=== PATIENT | male | born 2005 | race Two or more races ===

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

== ENCOUNTER 2023-03-04 16:31 | Outpatient (REF) | payer MEDICAID, SELFPAY ==
--- NOTE | 2023-03-05 09:16 | MHC.AU.HA3 ---
Addendum entered by Alex Peters CCC-A 03/05/23 10:33: NOTE Right hearing aid has SN that matches left aid in all documentation and programming. Unsure of reason--suspect serial numbers got switched at L&D in 2020 and might be programmed backwards, have not been hooked up since. Recommend checking and resolving at next visit. Original Note: Hearing Instrument Follow-Up- Binaural Date of Visit: 03/05/23 Right Ear: Make, Model, Color, Serial Number: Ange Rebolledo 50-312 Silver Antoine Serial #[id number] Fixed Assets Accountant Repair Warranty: 08/07/2021 Fixed Assets Accountant Loss and Damage Warranty: USED 06/28/2020 [facility] Service Plan: Battery Size: 312 Dish Up Person/Slim Tube: Size 2 power Earmold/Dome/CShell/SlimTip:Silicone SlimTip SN: [id number] Warranty: 11/03/2020 Type of Wax Guard: Cerushield Dispensed By: [facility] Date of Fittin05/14/2018 Left Ear: Make, Model, Color, Serial Number: Ange Rebolledo 50-312 Silver Antoine Serial #[id number] Fixed Assets Accountant Repair Warranty: 08/07/2021 Fixed Assets Accountant Loss and Damage Warranty: USED 06/28/2020 [facility] Service Plan: Battery Size: 312 Dish Up Person/Slim Tube: Size 2 power Earmold/Dome/CShell/SlimTip: Silicone SlimTip SN: [id number] Warranty: 11/03/2020 Type of Wax Guard: Cerushield Dispensed By: [facility] Date of Fittin05/14/2018 Follow-Up Summary: Right aid dropped off, reported . Dish Up Person intermittent, replaced. Cleaned earmold and aid, listening check OK. Brought up front for pt pickup. Recommendations: Recommendations: Patient will call if problems persist. Diagnosis Code(s): Primary Diagnosis: H90.6 Mixed Hearing Loss, Bilateral Signature: Provider: Alex Peters CCC-A
== END 2023-03-04 16:32 | disposition home or self-care (01) ==
LOC: HO.HAP 16:31
PROVIDERS: Visit Provider Nurse Practitioner
DX: Z46.1 Encounter for fitting and adjustment of hearing aid (principal); H90.6 Mixed conductive and sensorineural hearing loss, bilateral
CPT/HCPCS: V5299

== ENCOUNTER 2023-03-05 14:35 | Outpatient (REF) | payer MEDICAID, SELFPAY | END 2023-03-05 14:36 | disposition home or self-care (01) | LOC: HO.HAP 14:35 | PROVIDERS: Visit Provider Nurse Practitioner | DX: Z46.1 Encounter for fitting and adjustment of hearing aid (principal); H90.3 Sensorineural hearing loss, bilateral | CPT/HCPCS: V5266 ==

== ENCOUNTER 2023-04-16 14:23 | Outpatient (REF) | payer MEDICAID, SELFPAY ==
--- NOTE | 2023-04-17 12:37 | MHC.AU.HA3 ---
Hearing Instrument Follow-Up- Binaural Date of Visit: 04/17/22 Metal Casket Assembler Used: Right Ear: Yasmani, Model, Color, Serial Number: Ange Rebolledo 50-312 Silver Antoine Serial #[id number] Press Operator Heavy Duty Repair Warranty: 08/07/2021 Press Operator Heavy Duty Loss and Damage Warranty: USED 06/28/2020 [facility] Service Plan: Battery Size: 312 Business Transformation Analyst/Slim Tube: Size 2 power Earmold/Dome/CShell/SlimTip:Silicone SlimTip SN: [id number] Warranty: 11/03/2020 Type of Wax Guard: Cerushield Dispensed By: [facility] Date of Fittin05/14/2018 Left Ear: Yasmani, Model, Color, Serial Number: Ange Rebolledo 50-312 Silver Antoine Serial #[id number] Press Operator Heavy Duty Repair Warranty: 08/07/2021 Press Operator Heavy Duty Loss and Damage Warranty: USED 06/28/2020 [facility] Service Plan: Battery Size: 312 Business Transformation Analyst/Slim Tube: Size 2 power Earmold/Dome/CShell/SlimTip: Silicone SlimTip SN: [id number] Warranty: 11/03/2020 Type of Wax Guard: Cerushield Dispensed By: [facility] Date of Fittin05/14/2018 Follow-Up Summary: Jaylon visited for an updated audiogram and routine hearing aid maintenance. Both aids and earmolds cleaned, wax guards replaced, microphones vacuumed. Listening check OK. Jaylon requested his right aid be turned up slightly--increased 1 click, patient satisfied with sound. He will be eligible for new hearing aids soon--he is not certain he's ready for a change, but he and his father will discuss and call us back if/when ready to discuss updated technology options. Recommendations: Recommendations: Hearing instrument maintenance in 6 months, or sooner if needed. Diagnosis Code(s): Primary Diagnosis: H90.3 Bilateral Sensorineural Hearing Loss Signature: Provider: Alex Peters, [facility]
== END 2023-04-16 14:24 | disposition home or self-care (01) ==
LOC: HO.SH 14:23
PROVIDERS: Visit Provider Student in an Organized Health Care Education/Training Program
DX: Z01.118 Encounter for examination of ears and hearing with other abnormal findings (principal); Z46.1 Encounter for fitting and adjustment of hearing aid; H90.3 Sensorineural hearing loss, bilateral
CPT/HCPCS: 92557; 92593

== ENCOUNTER 2023-05-07 12:05 | Outpatient (REF) | payer MEDICAID, SELFPAY ==
[2023-05-07 14:47] LABS: Alanine Aminotransferase 40 U/L (0-40); Albumin Level 4.5 g/dL (3.5-5.0); Alkaline Phosphatase 75 U/L (39-117); Anion Gap 16 (12-20); Aspartate Amino Transferase 24 U/L (5-37); Bilirubin Total 0.8 mg/dL (0.0-1.0); Blood Urea Nitrogen 13 mg/dL (9-16); Calcium 9.5 mg/dL (8.4-10.2); Carbon Dioxide 28 mmol/L (22-29); Chloride 103 mmol/L (96-108); Estimated Glomerular Filt Rate > 60; Glucose Random 95 mg/dL (60-115); Potassium 3.7 mmol/L (3.3-5.1); Sodium 143 mmol/L (135-145); Total Protein 7.9 g/dL (6.5-8.0)
== END 2023-05-07 12:06 | disposition home or self-care (01) ==
LOC: HO.HHCL 12:05
PROVIDERS: Visit Provider Student in an Organized Health Care Education/Training Program
DX: Z00.00 Encounter for general adult medical examination without abnormal findings (principal)
CPT/HCPCS: 36415; 80053

== ENCOUNTER 2023-07-08 14:07 | Outpatient (REF) | payer MEDICAID, SELFPAY | END 2023-07-08 14:08 | disposition home or self-care (01) | LOC: HO.HAP 14:07 | PROVIDERS: Visit Provider Student in an Organized Health Care Education/Training Program | DX: Z46.1 Encounter for fitting and adjustment of hearing aid (principal); H90.3 Sensorineural hearing loss, bilateral | CPT/HCPCS: V5266 ==

== ENCOUNTER 2024-02-18 08:12 | Outpatient (REF) | payer MEDICAID, SELFPAY ==
--- NOTE | 2024-02-18 13:40 | MHC.AU.HA3 ---
Hearing Instrument Follow-Up- Binaural Date of Visit: 02/18/24 Right Ear: Yasmani, Model, Color, Serial Number: Ange Rebolledo 50-312 Silver Antoine Serial #[id number] Loom Stop Checker Repair Warranty: 08/07/2021 Loom Stop Checker Loss and Damage Warranty: USED 06/28/2020 [facility] Service Plan: Battery Size: 312 Ocean Fishing Guide/Slim Tube: Size 2 power Earmold/Dome/CShell/SlimTip:Silicone SlimTip SN: [id number] Warranty: 11/03/2020 Type of Wax Guard: Cerushield Dispensed By: [facility] Date of Fittin05/14/2018 Left Ear: Yasmani, Model, Color, Serial Number: Ange Rebolledo 50-312 Silver Antoine Serial #[id number] Loom Stop Checker Repair Warranty: 08/07/2021 Loom Stop Checker Loss and Damage Warranty: USED 06/28/2020 [facility] Service Plan: Battery Size: 312 Ocean Fishing Guide/Slim Tube: Size 2 power Earmold/Dome/CShell/SlimTip: Silicone SlimTip SN: [id number] Warranty: 11/03/2020 Type of Wax Guard: Cerushield Dispensed By: [facility] Date of Fittin05/14/2018 Follow-Up Summary: Right aid dropped off not working . Found microphones clogged, wax guard misaligned. Cleaned aid, cleaned earmold, replaced wax guard. Listening check positive. Recommendations: Recommendations: Hearing instrument follow-up or maintenance as needed. Diagnosis Code(s): Primary Diagnosis: H90.3 Bilateral Sensorineural Hearing Loss Signature: Provider: Neema Núñez, [facility]
== END 2024-02-18 08:13 | disposition home or self-care (01) ==
LOC: HO.HAP 08:12
PROVIDERS: Visit Provider Nurse Practitioner
DX: Z13.89 Encounter for screening for other disorder (principal)

== ENCOUNTER 2024-02-19 11:45 | Outpatient (REF) | payer MEDICAID, SELFPAY | END 2024-02-19 11:46 | disposition home or self-care (01) | LOC: HO.HAP 11:45 | PROVIDERS: Visit Provider Nurse Practitioner | DX: Z46.1 Encounter for fitting and adjustment of hearing aid (principal); H90.3 Sensorineural hearing loss, bilateral | CPT/HCPCS: 92592; 99499; V5266 ==

== ENCOUNTER 2024-02-19 11:52 | Outpatient (REF) | payer MEDICAID, SELFPAY | END 2024-02-19 11:53 | disposition home or self-care (01) | LOC: HO.HAP 11:52 | PROVIDERS: Visit Provider Nurse Practitioner | DX: Z13.89 Encounter for screening for other disorder (principal) ==

== ENCOUNTER 2024-03-17 13:21 | Outpatient (REF) | payer MEDICAID, SELFPAY ==
--- NOTE | 2024-03-18 09:38 | MHC.AU.HA3 ---
Hearing Instrument Follow-Up- Binaural Date of Visit: 03/17/24 Right Ear: Yasmani, , Color, Serial Number: Ange Rebolledo 50-312 Silver Antoine Serial #[id number] Major Assembler Repair Warranty: 08/07/2021 Major Assembler Loss and Damage Warranty: USED 06/28/2020 Battery Size: 312 Financial Investment Manager/Slim Tube: Size 2 power Earmold/Dome/CShell/SlimTip:Silicone SlimTip SN: [id number] Warranty: 11/03/2020 Type of Wax Guard: Cerushield Dispensed By: [facility] Date of Fittin05/14/2018 Left Ear: Yasmani, , Color, Serial Number: Ange Rebolledo 50-312 Silver Antoine Serial #[id number] Major Assembler Repair Warranty: 08/07/2021 Major Assembler Loss and Damage Warranty: USED 06/28/2020 Battery Size: 312 Financial Investment Manager/Slim Tube: Size 2 power Earmold/Dome/CShell/SlimTip: Silicone SlimTip SN: [id number] Warranty: 11/03/2020 Type of Wax Guard: Cerushield Dispensed By: [facility] Date of Fittin05/14/2018 Follow-Up Summary: Right aid dropped off turns off and on, hears better when he touches the back of it . Cleaned aid and earmold. Found multiple wax guards in business representative. Found aid to cut in and out with movement of business representative. Replaced business representative. Listening check positive. Recommendations: Recommendations: Hearing instrument follow-up or maintenance as needed. Diagnosis Code(s): Primary Diagnosis: H90.3 Bilateral Sensorineural Hearing Loss Signature: Provider: Neema Núñez, [facility]
== END 2024-03-17 13:22 | disposition home or self-care (01) ==
LOC: HO.HAP 13:21
PROVIDERS: Visit Provider Nurse Practitioner
DX: Z13.89 Encounter for screening for other disorder (principal)

== ENCOUNTER 2024-03-20 16:17 | Outpatient (REF) | payer MEDICAID, SELFPAY | END 2024-03-20 16:18 | disposition home or self-care (01) | LOC: HO.HAP 16:17 | PROVIDERS: Visit Provider Nurse Practitioner | DX: Z46.1 Encounter for fitting and adjustment of hearing aid (principal); H90.3 Sensorineural hearing loss, bilateral | CPT/HCPCS: 92592; 99499; V5299 ==

== ENCOUNTER 2024-06-02 12:59 | Outpatient (REF) | payer MEDICAID, SELFPAY ==
--- OUTSIDE RECORDS SUMMARY | 2024-06-02 13:52 | XMS_ITS | Encounter Summary ---
Author Organization [employer] Address [address] [place] [address] Care Team Providers Care Pointer Machine Operator Name Role Phone Ros Goodwin MD Primary Care Pro vider Reason for Visit * Reason Onset Date Comments July05/08/2024 Encounter Details Date Type Department Care Team ([facility] st Contact Info) Description 05/08/2024 Telephone [facility] [address] [place] [address] Lottie LealGRENADA, [place] July Recall Social History Tobacco Use Types Packs/Day Years Used Date Smoking Tobacco: Never Passive Smoke Exposure: Never Smokeless Tobacco: Never Alcohol Use Standard Drinks/Week Comments Never 0 (1 standard drink = 0.6 oz pur e alcohol) Depression Answer Date Recorded Patient Health Questionnaire-9 Score 1 12/11/2022 Housing Stability Answer Date Recorded What is your housing situation today? I have lino madison 02/04/[address] you li ve. Do you have problems with any of the following? None of the above 02/04/2023 Food Insecurity Answer Date Recorded Within the past 12 months, y ou worried that your food would run out before you got money to buy more: Never True 02/04/2023 Within the past 12 months,th e food you bought just didn't last and you didn't have enough money to get more: Never True Transportation Answer Date Recorded In the past 12 months, has l ack of transportation kept you from medical appts, meetings, work or from getting things needed for daily living? No 02/04/2023 Utilities Answer Date Recorded In the past 12 months, has t he electric, gas, oil or water company threatened to shut off services in your home? No 02/04/2023 Depression Answer Date Recorded Patient Health Questionnaire-2 Score 0 12/11/2022 Sex and Gender Information Value Date Recorded Sex Assigned at Male 02/12/2022 10:25 AM EDT Legal Sex Male 10:25 AM EDT Gender Identity Male 02/12/2022 10:25 AM EDT Sexual Orientation Straight 02/12/2022 10 :25 AM EDT documented as of this encounter Miscellaneous Notes * Telephone Encounter - Lottie Leal [place] - 05/08/2024 2:38 PM EST T/C- Cellar Packer Left Voice Mail to return call to schedule an appointment. Recall letter sent. Appointment: Physical Note: PE Month: July With: Elias Please schedule appointment if Patient calls Back. documented in this encounter Plan of Treatment Not on file documented as of this encounter Visit Diagnoses Not on filedocumented in this encounter Additional Health Concerns Assessment Noted Time PHQ-9 Depression Total Score: 1 12/12/19 10:25 AM EDT documented as of this encounter Care Teams Pointer Machine Operator Relationship Specialty Start Date End Date Ros Goodwin MD [address] [place] [phone] PCP - General Internal Medicine 09/17/22 documented as of this encounter
--- OUTSIDE RECORDS SUMMARY | 2024-06-02 13:52 | XMS_ITS | Clinical Summary ---
Author Organization [employer] Address [address] [place] [address] [address] [place] [address] Care Team Providers Care Speed Runner Name Role Phone Ros Goodwin MD Primary Care Pro vider Allergies No known active allergies Medications No known medications Active Problems Problem Noted Date Diagnosed Date Rosacea 05/07/2023 Health care maintenance 12/11/2022 Overweight 12/11/2022 Right foot drop 01/14/2017 Cognitive developmental delay 01/14/2017 Speech and language disorder 11/26/2014 Facioscapulohumeral muscular dystrophy 4 Hearing loss 03/30/2013 Scoliosis deformity of spine 03/30/2013 Visual impairment 03/30/2013 Encounters Date Type Department Care Team Description 05/08/2024 Telephone [facility] [address] [place] [address] Lottie Leal [place] July Recall from Last 3 Months Immunizations Name Administration Dates Next Due DTaP, 5 pertussis antigens 09/10/2007,,2003,06/10,2003 HPV 9-Valent 12/05/2015,01/27/2015,11/26/2014 Hep A, ped/adol, 2 dose 11/26/2014,05/23/2009 Hep B, Adolescent or Pediatric 2003,2002,2003 Hep B, adult 10/08/2023,02/11/2023,01/08/2023 Hib (HbOC) 2003,2003 IPV 09/10/2007, 4,2003,03/25 Influenza injectable quadriv alent preservative free 01/08/2023,06/17/2020,04/21/2019,03/20,01/14/2017,01/27/2015 Influenza, IIV3, injectable 06/01/2004 Influenza, Split (incl. jean-paul fied surface antigen) 03/30/2013 MMR 09/10/2007,02/10/2004 Meningococcal MCV4P ACYW-135 06/17/2020,11/27/19 15 Pfizer Covid-19 Vaccine 12+ Bivalent 12/11/2022 Pneumococcal Conjugate PCV 7 2003,06/10/19 04,2003 Tdap 11/26/2014 Varicella 09/10/2007,02/10/2004 Family History Medical History Relation Name Comments DM2 Mother's Sister DM2 Paternal Grandfather Relation Name Status Comments Mother's Sister Paternal Grandfather Social History Tobacco Use Types Packs/Day Years Used Date Smoking Tobacco: Never Passive Smoke Exposure: Never Smokeless Tobacco: Never Tobacco Cessation:Counseling Given: Not Answered Alcohol Use Standard Drinks/Week Comments Never 0 [...] Orientation Straight 02/12/2022 10 :25 AM EDT Last Filed Vital Signs Vital Sign Reading Time Taken Comments Blood Pressure 134/76 10/08/2023 9:57 AM EDT Pulse 87 10/08/2023 9:57 AM EDT Temperature 37.2 ??C (98.9 ??F) 10/08/2023 9:57 AM ED T Respiratory Rate 20 10/08/2023 9:57 AM EDT Oxygen Saturation 97% 10/08/2023 9:57 AM EDT Inhaled Oxygen Concentration - - Weight 80.3 kg (177 lb) 10/08/2023 9:57 AM EDT Height 170.2 cm (5' 7 ) 05/07/2023 11:17 AM EST Body Mass Index 27.72 05/07/2023 11:17 AM EST Plan of Treatment Health Maintenance Due Date Last Done Comments Alcohol/Substance Use Screening 2015 Family Planning (PISQ) 2018 Chlamydia and Gonorrhea Screening 12/12/2023 12/11/2022 Depression Screening 12/12/2023 12/11/2022, 12/12/19 23 COVID-19 Vaccine ( season) 2023 12/11/2022, 06/05/2021, 05/15/2021 Influenza Vaccine (#1) 2023 , 06/17/2020, 04/21/2019, Additional history exists SDOH Screening 09/23/2024 09/24/2023 Tobacco Screening 10/07/2024 10/08/2023 DTaP/Tdap/Td Vaccines (7 - Td or Tdap) 11/26/2024 11/26/2014, 09/10/2007, 06/01/2004, Additional history exists Zoster Vaccines (1 of 2) 2053 RSV Patients and Patients Aged 60 years or older (1 - 1-dose 75+ series) 2078 HIB Vaccines Aged Out 2003, 2003 No lo nger eligible based on patient's age to complete this topic Pneumococcal Vaccine: Pediatrics (0 to 5 Years) and At-Risk Patients (6 to 49) Years) Aged Out 2003, 2003, 2003 No longer eligible based on patient's age to complete this topic IPV Vaccines Completed 09/10/2007, 09/13, 2003, Additional history exists Hepatitis A Vaccines Completed 11/26/2014, 05/23/19 10 HPV Vaccines Completed 12/05/2015, 01/13, 11/26/2014 Meningococcal Vaccine Completed 06/17/2020, 015 HIV Screening Completed 12/11/2022 Hepatitis C Screening Completed 12/11/2022 Hepatitis B Vaccines Completed 10/08/2023, 02/11/2023, 01/08/2023, Additional history exists RSV under 20 months Aged Out No longe r eligible based on patient's age to complete this topic Rotavirus Vaccines Aged Out No longer eligible based on patient's age to complete this topic Procedures Procedure Name Priority Date/Time Associated Diagnosis Comments CHLAMYDIA/N. GONORRHOEAE RNA, TMA, UROGENITAL Routine 12/11/2022 11:27 AM EDT Health care maintenance HEPATITIS C ANTIBODY REFLEX Routine 12/11/2022 11:23 AM EDT HIV ANTIBODY/ANTIGEN ([place] [facility]) Routine 12/11/2022 11:23 AM EDT from Last 3 Months or Most Recently Relevant to Health Maintenance Results * Chlamydia/N. Gonorrhoeae RNA, TMA, Urogenitial (12/11/2022 11:27 AM EDT) Pathologist [facility] CT PCR NOT DETECTED Not Detect. [facility] Comment:A not detected test result does not exclude the possibilityof infection because test results can be affected byimproper specimen collection, concurrent antibiotic therapy,or the number of organisms in the specimen which may bebelow the sensitivity of the test. As with many diagnostictests, results from the Xpert CT/NG assay should beinterpreted in conjunction with other laboratory andclinical data available to the clinician.Xpert CT/NG performance has not been evaluated in patientsless than 14 years of age. The assay should not be used forthe evaluationof suspected sexual abuse or for other medico-legalindications. Additional testing is recommended in anycircumstance when false positive or false negative resultscould lead to adverse medical, social or psychologicalconsequences. NG PCR NOT DETECTED Not Detect. [facility] Comment:A not detected test result does not exclude the possibilityof infection because test results can be affected byimproper specimen collection, concurrent antibiotic therapy,or the number of organisms in the specimen which may bebelow the sensitivity of the test. As with many diagnostictests, results from the Xpert CT/NG assay should beinterpreted in conjunction with other laboratory andclinical data available to the clinician.Xpert CT/NG performance has not been evaluated in patientsless than 14 years of age. The assay should not be used forthe evaluationof suspected sexual abuse or for other medico-legalindications. Additional testing is recommended in anycircumstance when false positive or false negative resultscould lead to adverse medical, social or psychologicalconsequences. Urine (Urine, Random) 12/11/2022 11:27 AM EDT 12/11/2022 1:53 PM EDT Narrative [facility] - 12/11/2022 3:50 PM EDT Urine Ros Heart MD LAB MICROBIOLOGY - GENERAL ORDERABLES Final Result [facility] [address] [place] [phone] * Hepatitis C Antibody Reflex (12/11/2022 11:23 AM EDT) Hepatitis C Antibody Nonreactive Nonreactive [facility] Comment:Antibodies to HCV no t detected; does not exclude early acuteHCV infection. 12/11/2022 11:2 3 AM EDT 12/11/2022 1:31 PM EDT us Ros Heart MD LAB BLOOD ORDERAB LES Final Result Performing Organization Address [facility]/ZIP Co de Phone Number [facility] [address] [place] [address] [phone] * HIV Ab/Ag (LANRE MCCOY) (12/11/2022 11:23 AM EDT) HIV AB/AG Nonreactive Nonreactive [facility] Comment:HIV-1 p24 Ag and/or HIV-1/HIV-2 Ab not detected.A test result that is nonreactive does not exclude thepossibility of exposure to or infection with HIV-1 and/orHIV-2. Nonreactive results in this assay for individualswith prior exposure to HIV-1 and/or HIV-2 may be due toantigen and antibody levels that are below the limit ofdetection of this assay.The Dupree Steam Shovel Engineer HIV Ag/Ab Combo assay result andsupplemental assay results should be interpreted inconjunction with the patient's clinical presentation,history and other laboratory results. If the results areinconsistent with clinical evidence, additional testing issuggested to confirm the result. 12/11/2022 11:2 3 AM EDT 12/11/2022 1:41 PM EDT us Ros Heart MD LAB BLOOD ORDERAB LES Final Result Performing Organization Address City/[facility]/ZIP Co de Phone Number [facility] [address] [place] [address] [phone] from Last 3 Months or Most Recently Relevant to Health Maintenance Insurance [facility] C3 Care Teams Speed Runner Relationship Specialty Start Date End Date Ros Goodwin MD [address] [place] [phone] PCP - General Internal Medicine 09/17/22
== END 2024-06-02 13:00 | disposition home or self-care (01) ==
LOC: HO.HAP 12:59
PROVIDERS: Visit Provider Nurse Practitioner
DX: Z46.1 Encounter for fitting and adjustment of hearing aid (principal); H90.3 Sensorineural hearing loss, bilateral
CPT/HCPCS: V5266

== ENCOUNTER 2024-08-14 13:20 | Outpatient (REF) | payer MEDICAID, SELFPAY ==
--- NOTE | 2024-08-14 14:47 | MHC.AU.HA3 ---
Hearing Instrument Follow-Up- Binaural Date of Visit: 08/14/24 Playground Supervisor Used: Right Ear: Yasmani, Model, Color, Serial Number: Ange Rebolledo 50-312 Silver Antoine Serial #[id number] Site Safety Representative Repair Warranty: 08/07/2021 Site Safety Representative Loss and Damage Warranty: USED 06/28/2020 [facility] Service Plan: Battery Size: 312 [place] Man/Slim Tube: Size 2 power Earmold/Dome/CShell/SlimTip:Silicone SlimTip SN: [id number] Warranty: 11/03/2020 Type of Wax Guard: Cerushield Dispensed By: [facility] Date of Fittin05/14/2018 Left Ear: Yasmani, Model, Color, Serial Number: Ange Rebolledo 50-312 Silver Antoine Serial #[id number] Site Safety Representative Repair Warranty: 08/07/2021 Site Safety Representative Loss and Damage Warranty: USED 06/28/2020 [facility] Service Plan: Battery Size: 312 [place] Man/Slim Tube: Size 2 power Earmold/Dome/CShell/SlimTip: Silicone SlimTip SN: [id number] Warranty: 11/03/2020 Type of Wax Guard: Cerushield Dispensed By: [facility] Date of Fittin05/14/2018 Follow-Up Summary: Jaylon reports his left laborer pullet farm broke, right is weak. Both receivers need to be replaced. Cleaned EMs, debris from microphones, and ran through dehumidifiers. Significant debris on devices. Otoscopy shows red, irritated canals with white debris. Patient reports itching at night. Recommend contacting PCP in case of infection. Sister states they will request order for new hearing test to begin process for updated hearing aids. Recommendations: Recommendations: Hearing instrument follow-up or maintenance as needed. Diagnosis Code(s): Primary Diagnosis: H90.3 Bilateral Sensorineural Hearing Loss Signature: Provider: Alex Peters, [facility]
== END 2024-08-14 13:21 | disposition home or self-care (01) ==
LOC: HO.HAP 13:20
PROVIDERS: Visit Provider Nurse Practitioner
DX: Z46.1 Encounter for fitting and adjustment of hearing aid (principal); H90.3 Sensorineural hearing loss, bilateral
CPT/HCPCS: 92593; 99499; V5266; V5299

== ENCOUNTER 2024-09-17 13:44 | Outpatient (REF) | payer MEDICAID, SELFPAY ==
--- OUTSIDE RECORDS SUMMARY | 2024-09-17 16:14 | XMS_ITS | Clinical Summary ---
Author Organization [employer] Address [address] [facility] [address] [place] [address] Care Team Providers Care Highway Design Engineer Name Role Phone Ros Goodwin MD Primary [...] Encounters Date Type Department Care Team Description 07/24/[address] [facility] [address] [place] [address] Ros Goodwin MD october06/26/2024 Population Health Risk Score [facility] (C3) Department [address] [phone] Provider, Population Health Generic from Last 3 Months Immunizations Immunization Administration Dates Next Due DTaP, 5 pertussis [...] Health Maintenance Due Date Last Done Comments Disability Screening 2003 Alcohol/Substance Use Screening 2015 Family Planning (PISQ) 2018 Meningococcal B Vaccine (1 of 2 - Standard) 2019 Chlamydia and Gonorrhea Screening 12/12/2023 12/11/2022 Depression Screening 12/12/2023 12/11/2022, 12/12/19 23 COVID-19 Vaccine ( season) 2023 12/11/2022, 06/05/2021, 05/15/2021 SDOH Screening 09/23/2024 09/24/2023 Tobacco Screening 10/07/2024 10/08/2023 DTaP/Tdap/Td Vaccines (7 - Td or Tdap) 11/26/2024 11/26/2014, 09/10/2007, 06/01/2004, Additional history exists Influenza Vaccine (Season Ended) 2024 01/08/2023, 06/17/2020, 04/21/2019, Additional history exists Zoster Vaccines (1 of [...] RNA, TMA, Urogenitial (12/11/2022 11:27 AM EDT) CT PCR NOT DETECTED Not Detect. [facility] Comment:A not detected test [...] psychologicalconsequences. NG PCR NOT DETECTED Not Detect. [facility] Comment:A not detected test [...] AM EDT 12/11/2022 1:53 PM EDT Narrative [facility] - 12/11/2022 3:50 PM EDT Urine us Ros Heart MD LAB MICROBIOLOGY - GENERAL ORDERABLES Final Result [facility] [address] [place] [phone] * Hepatitis C Antibody Reflex (12/11/2022 11:23 AM EDT) Hepatitis C Antibody Nonreactive Nonreactive [facility] Comment:Antibodies to HCV no t detected; does not exclude early acuteHCV infection. 12/11/2022 11:2 3 AM EDT 12/11/2022 1:31 PM EDT us Ros Heart MD LAB BLOOD ORDERAB LES Final Result Performing Organization Address [facility]/ZIP Co de Phone Number [facility] [address] [place] [address] [phone] * HIV Ab/Ag ([facility]) (12/11/2022 11:23 AM EDT) [facility] HIV AB/AG Nonreactive Nonreactive [facility] Comment:HIV-1 p24 Ag and/or HIV-1/HIV-2 Ab not detected.A test result that is nonreactive does not exclude thepossibility of exposure to or infection with HIV-1 and/orHIV-2. Nonreactive results in this assay for individualswith prior exposure to HIV-1 and/or HIV-2 may be due toantigen and antibody levels that are below the limit ofdetection of this assay.The Dupree Car Rider HIV Ag/Ab Combo assay result andsupplemental assay results should be interpreted inconjunction with the patient's clinical presentation,history and other laboratory results. If the results areinconsistent with clinical evidence, additional testing issuggested to confirm the result. 12/11/2022 11:2 3 AM EDT 12/11/2022 1:41 PM EDT us Ros Heart MD LAB BLOOD ORDERAB LES Final Result Performing Organization Address [facility] Co de Phone Number [facility] [address] [place] [phone] from Last 3 Months or Most Recently Relevant to Health Maintenance Insurance * Guarantor: Jaylon Edmondson Account Type Relation to Patient Date of Phone Billing Address Personal/Family Self [address] Care Teams Highway Design Engineer Relationship Specialty Start Date End Date Ros Goodwin MD [address] [place] [phone] PCP - General Internal Medicine 09/17/22
== END 2024-09-17 13:45 | disposition home or self-care (01) ==
LOC: HO.HAP 13:44
PROVIDERS: Visit Provider Nurse Practitioner
DX: Z46.1 Encounter for fitting and adjustment of hearing aid (principal); H90.3 Sensorineural hearing loss, bilateral
CPT/HCPCS: V5266

== ENCOUNTER 2024-09-28 12:24 | Outpatient (REF) | payer MEDICAID, SELFPAY ==
--- OUTSIDE RECORDS SUMMARY | 2024-09-28 13:47 | XMS_ITS | Clinical Summary ---
Author Organization [employer] Address [address] [place] [address] [place] [address] Care Team Providers Care Print Inspector Name Role Phone Ros Goodwin MD Primary [...] Type Department Care Team Description 07/24/[address] [phone] Ros Goodwin MD october recall from Last 3 Months Immunizations Immunization Administration [...] Years) and At-Risk Patients (6 to 49) Years Aged Out 2003, 2003, 2003 No longer [...] EDT) CT PCR NOT DETECTED Not Detect. [facility] Comment:A not detected test result does [...] psychologicalconsequences. NG PCR NOT DETECTED Not Detect. [facility] Comment:A not detected test result does [...] AM EDT 12/11/2022 1:53 PM EDT Narrative [facility] - 12/11/2022 3:50 PM EDT Urine us Ros Heart MD LAB MICROBIOLOGY - GENERAL ORDERABLES Final Result [facility] [address] [place] [phone] * Hepatitis C Antibody Reflex (12/11/2022 11:23 AM EDT) Hepatitis C Antibody Nonreactive Nonreactive [facility] Comment:Antibodies to HCV no t detected; does not exclude early acuteHCV infection. 12/11/2022 11:2 3 AM EDT 12/11/2022 1:31 PM EDT us Ros Heart MD LAB BLOOD ORDERAB LES Final Result Performing Organization Address [facility] Co de Phone Number [facility] [address] [place] [address] [phone] * HIV Ab/Ag ([facility] DP) (12/11/2022 11:23 AM EDT) HIV AB/AG Nonreactive Nonreactive [facility] Comment:HIV-1 p24 Ag and/or HIV-1/HIV-2 Ab not detected.A test result that is nonreactive does not exclude thepossibility of exposure to or infection with HIV-1 and/orHIV-2. Nonreactive results in this assay for individualswith prior exposure to HIV-1 and/or HIV-2 may be due toantigen and antibody levels that are below the limit ofdetection of this assay.The Dupree Strategy Manager HIV Ag/Ab Combo assay result andsupplemental assay results should be interpreted inconjunction with the patient's clinical presentation,history and other laboratory results. If the results areinconsistent with clinical evidence, additional testing issuggested to confirm the result. 12/11/2022 11:2 3 AM EDT 12/11/2022 1:41 PM EDT us Ros Heart MD LAB BLOOD ORDERAB LES Final Result Performing Organization Address [facility] Co de Phone Number [facility] [address] [place] [address] [phone] from Last 3 Months or Most Recently Relevant to Health Maintenance Insurance [facility] C3 Care Teams Print Inspector Relationship Specialty Start Date End Date Ros Goodwin MD [address] [place] [phone] PCP - General Internal Medicine 09/17/22
== END 2024-09-28 12:25 | disposition home or self-care (01) ==
LOC: HO.HAP 12:24
PROVIDERS: Visit Provider Nurse Practitioner
DX: Z46.1 Encounter for fitting and adjustment of hearing aid (principal); H90.3 Sensorineural hearing loss, bilateral
CPT/HCPCS: 92592; 99499; V5299

== ENCOUNTER 2024-10-07 10:58 | Outpatient (REF) | payer MEDICAID, SELFPAY ==
--- OUTSIDE RECORDS SUMMARY | 2024-10-07 13:00 | XMS_ITS | Clinical Summary ---
Author Organization [employer] Address [address] [place] [address], [place] [address] Care Team Providers Care Damper Maker Name Role Phone Ros Goodwin MD Primary [...] Type Department Care Team Description 07/24/[address] [phone] Ros Goodwin MD october recall from Last [...] 87 10/08/2023 9:57 AM EDT Temperature 37.2 C (98.9 F) 10/08/2023 9:57 AM EDT Respiratory Rate 20 10/08/2023 9:57 AM EDT Oxygen Saturation 97% 10/08/2023 9:57 AM EDT Inhaled Oxygen Concentration - - Weight 80.3 kg (177 lb) 10/08/2023 9:57 AM EDT Height 170.2 cm (5' 7 ) 05/07/2023 11:17 AM EST Body Mass Index 27.72 05/07/2023 11:17 AM EST Plan of Treatment Upcoming Encounters Date Type Department Care Team (Late st Contact Info) Description 12/09/2024 2:45 PM EDT Office Visit [facility] [address] [place] [address] [phone] oRs Goodwin MD [address] [place], [place] [phone] Health Maintenance Due Date Last Done Comments [...] EDT) CT PCR NOT DETECTED Not Detect. [facility] Comment:A not detected test result [...] psychologicalconsequences. NG PCR NOT DETECTED Not Detect. [facility] Comment:A not detected test result [...] AM EDT 12/11/2022 1:53 PM EDT Narrative [facility] - 12/11/2022 3:50 PM EDT Urine us Ros Heart MD LAB MICROBIOLOGY - GENERAL ORDERABLES Final Result [facility] [address] [place] [phone] * Hepatitis C Antibody Reflex (12/11/2022 11:23 AM EDT) Hepatitis C Antibody Nonreactive Nonreactive [facility] Comment:Antibodies to HCV no t detected; does not exclude early acuteHCV infection. 12/11/2022 11:2 3 AM EDT 12/11/2022 1:31 PM EDT us Ros Heart MD LAB BLOOD ORDERAB LES Final Result Performing Organization Address [facility] Co de Phone Number [facility] [address] [place] [address] [phone] * HIV Ab/Ag ([facility]) (12/11/2022 11:23 AM EDT) HIV AB/AG Nonreactive Nonreactive [facility] Comment:HIV-1 p24 Ag and/or HIV-1/HIV-2 Ab not detected.A test result that is nonreactive does not exclude thepossibility of exposure to or infection with HIV-1 and/orHIV-2. Nonreactive results in this assay for individualswith prior exposure to HIV-1 and/or HIV-2 may be due toantigen and antibody levels that are below the limit ofdetection of this assay.The Dupree Wax Pattern Repairer HIV Ag/Ab Combo assay result andsupplemental assay results should be interpreted inconjunction with the patient's clinical presentation,history and other laboratory results. If the results areinconsistent with clinical evidence, additional testing issuggested to confirm the result. 12/11/2022 11:2 3 AM EDT 12/11/2022 1:41 PM EDT us Ros Heart MD LAB BLOOD ORDERAB LES Final Result Performing Organization Address [facility]/ZIP Co de Phone Number [facility] [address] [place] [address] [phone] from Last 3 Months or Most Recently Relevant to Health Maintenance Insurance * Guarantor: Jaylon Edmondson Account Type Relation to Patient Date of Phone Billing Address Personal/Family Self [address] [place] Care Teams Damper Maker Relationship Specialty Start Date End Date Ros Goodwin MD [address] [place] [phone] PCP - General Internal Medicine 09/17/22
--- NOTE | 2024-10-08 15:23 | MHC.AU.HA3 ---
Hearing Instrument Follow-Up- Binaural Date of Visit: 10/08/24 Right Ear: Yasmani, , Color, Serial Number: Ange Rebolledo [id number] SN: [id number] Color: Silver Antoine Manager Field Services Repair Warranty: 08/07/2021 Manager [employer] Services Loss and Damage Warranty: USED 06/28/2020 Battery Size: 312 Calendering Supervisor/Slim Tube: Size 2 power Earmold/Dome/CShell/SlimTip:Silicone SlimTip SN: [id number] Warranty: 11/03/2020 Type of Wax Guard: CeruStop Dispensed By: [facility] Date of Fittin05/14/2018 Left Ear: Yasmani, Model, Color, Serial Number: Ange Rebolledo [id number] SN: [id number] Color: Silver Antoine Manager Field Services Repair Warranty: 08/07/2021 Manager [employer] Loss and Damage Warranty: USED 06/28/2020 Battery Size: 312 Calendering Supervisor/Slim Tube: Size 2 power Earmold/Dome/CShell/SlimTip: Silicone SlimTip SN: [id number] Warranty: 11/03/2020 Type of Wax Guard: CeruStop Dispensed By: [facility] Date of Fittin05/14/2018 Follow-Up Summary: Left IBARRA/EM dropped off 10/07/2024, noting IBARRA intermittent. Assessed 10/08/2024. Could not replicate in office. Cleaned IBARRA/EM. Replaced wax guards. Vacuumed microphone. Ran through dehumidifier. Listening check demonstrated IBARRA amplifying clearly, no intermittency even with movement of tester sound. No charge, seems to be ongoing issue as same IBARRA recently dropped off on 09/28/2024 noting turns off and on when loud, however, issue also could not be replicated in office at that time. Given age of device, recommend obtaining doctor's order for updated hearing test to start process of new HAs. Recommendations: Hearing instrument follow-up or maintenance as needed. Please contact our clinic with any questions or concerns. Diagnosis Code(s): Primary Diagnosis: H90.3 Bilateral Sensorineural Hearing Loss Signature: Provider: Neema Johnson, [facility]
== END 2024-10-07 10:59 | disposition home or self-care (01) ==
LOC: HO.SH 10:58
PROVIDERS: Visit Provider Nurse Practitioner
DX: Z13.89 Encounter for screening for other disorder (principal)

== ENCOUNTER 2024-10-09 16:09 | Outpatient (REF) | payer MEDICAID, SELFPAY | END 2024-10-09 16:10 | disposition home or self-care (01) | LOC: HO.HAP 16:09 | PROVIDERS: Visit Provider Student in an Organized Health Care Education/Training Program | DX: Z13.89 Encounter for screening for other disorder (principal) ==

== ENCOUNTER 2024-10-28 09:11 | Outpatient (REF) | payer MEDICAID, SELFPAY ==
--- OUTSIDE RECORDS SUMMARY | 2024-10-28 09:29 | XMS_ITS | Clinical Summary ---
Author Organization [employer] Address [address] [place] [address] [address] [place] [address] Care Team Providers Care Air Traffic Control Equipment Repairer Name Role Phone Ros Goodwin MD Primary Care Pro vider Allergies No known active allergies Medications No known medications Active Problems Problem Noted Date Diagnosed Date Rosacea 05/07/2023 Health care maintenance 12/11/2022 Overweight 12/11/2022 Right foot drop 01/14/2017 Cognitive developmental delay 01/14/2017 Speech and language disorder 11/26/2014 Facioscapulohumeral muscular dystrophy 4 Hearing loss 03/30/2013 Scoliosis deformity of spine 03/30/2013 Visual impairment 03/30/2013 Immunizations Immunization Administration Dates Next Due DTaP, [...] Description 12/09/2024 2:45 PM EDT Office Visit [facility] [address] [place], [place] [phone] Ros Goodwin MD [address] [place] [address] Health Maintenance Due Date Last Done Comments [...] 09/10/2007, 06/01/2004, Additional history exists Influenza Vaccine (#1) 2024 3, 06/17/2020, 04/21/2019, Additional history exists Zoster Vaccines [...] EDT) CT PCR NOT DETECTED Not Detect. [facility] Comment:A not detected test result [...] psychologicalconsequences. NG PCR NOT DETECTED Not Detect. [facility] Comment:A not detected test result [...] AM EDT 12/11/2022 1:53 PM EDT Narrative [facility] - 12/11/2022 3:50 PM EDT Urine us Ros Heart MD LAB MICROBIOLOGY - GENERAL ORDERABLES Final Result [facility] [address] [place] [phone] * Hepatitis C Antibody Reflex (12/11/2022 11:23 AM EDT) Hepatitis C Antibody Nonreactive Nonreactive [facility] Comment:Antibodies to HCV no t detected; does not exclude early acuteHCV infection. 12/11/2022 11:2 3 AM EDT 12/11/2022 1:31 PM EDT us Ros Heart MD LAB BLOOD ORDERAB LES Final Result [facility] [address] [place] [phone] * HIV Ab/Ag ([facility]) (12/11/2022 11:23 AM EDT) [facility] HIV AB/AG Nonreactive Nonreactive [facility] Comment:HIV-1 p24 Ag and/or HIV-1/HIV-2 Ab not detected.A test result that is nonreactive does not exclude thepossibility of exposure to or infection with HIV-1 and/orHIV-2. Nonreactive results in this assay for individualswith prior exposure to HIV-1 and/or HIV-2 may be due toantigen and antibody levels that are below the limit ofdetection of this assay.The Dupree Frame Runner HIV Ag/Ab Combo assay result andsupplemental assay results should be interpreted inconjunction with the patient's clinical presentation,history and other laboratory results. If the results areinconsistent with clinical evidence, additional testing issuggested to confirm the result. 12/11/2022 11:2 3 AM EDT 12/11/2022 1:41 PM EDT us Ros Heart MD LAB BLOOD ORDERAB LES Final Result Performing Organization Address City/[facility]/ZIP Co de Phone Number [facility] [address] [place] [address] [phone] from Last 3 Months or Most Recently Relevant to Health Maintenance Insurance [facility] * Guarantor: Jaylon Edmondson Account Type Relation to Patient Date of Phone Billing Address Personal/Family Self [address] [place] Care Teams Air Traffic Control Equipment Repairer Relationship Specialty Start Date End Date Ros Goodwin MD [address] [place] [address] [place] [address] PCP - General Internal Medicine 09/17/22
--- NOTE | 2024-10-28 09:57 | MHC.AU.HA3 ---
Hearing Instrument Follow-Up- Binaural Date of Visit: 10/28/24 Right Ear: Yasmani, Model, Color, Serial Number: Ange Rebolledo [id number] SN: [id number] Color: Silver Antoine Executive Director Of Marketing Repair Warranty: 08/07/2021 Executive Director Of Marketing Loss and Damage Warranty: USED 06/28/2020 [facility] Service Plan: Battery Size: 312 Wire Stripper/Slim Tube: Size 2 power Earmold/Dome/CShell/SlimTip:Silicone SlimTip SN: [id number] Warranty: 11/03/2020 Type of Wax Guard: CeruStop Dispensed By: [facility] Date of Fittin05/14/2018 Left Ear: Yasmani, Model, Color, Serial Number: Ange Rebolledo [id number] SN: [id number] Color: Silver Antoine Executive Director Of Marketing Repair Warranty: 08/07/2021 Executive Director Of Marketing Loss and Damage Warranty: USED 06/28/2020 [facility] Service Plan: Battery Size: 312 Wire Stripper/Slim Tube: Size 2 power Earmold/Dome/CShell/SlimTip: Silicone SlimTip SN: [id number] Warranty: 11/03/2020 Type of Wax Guard: CeruStop Dispensed By: [facility] Date of Fittin05/14/2018 Follow-Up Summary: Left aid dropped off complaint of big sound then no sound. Disinfected hearing aid and earmold. Listening check positive. Aid amplifying clearly. Jostled diamond selector, not cutting in and out. Could not replicate any problem in office. Aid has been dropped off multiple times now with no identifiable issue in office. Order for updated audiogram has previously been recommended. Recommendations: Recommendations: Request order from PCP for updated audiogram. Diagnosis Code(s): Primary Diagnosis: H90.3 Bilateral Sensorineural Hearing Loss Signature: Provider: Neema Núñez, [facility]
== END 2024-10-28 09:12 | disposition home or self-care (01) ==
LOC: HO.SH 09:11
PROVIDERS: Visit Provider Nurse Practitioner
DX: H90.3 Sensorineural hearing loss, bilateral (principal)
CPT/HCPCS: 92592